=== PATIENT | male | born 1985 | race Caucasian/White ===

== ENCOUNTER 2023-08-04 20:13 | Emergency (ER) | payer OTHER ==
[~2023-08-04] VITALS: Ht 172.7 cm; Wt 91.2 kg
[2023-08-04 20:15] VITALS: BP 126/82; TEMP 98.9; O2SAT 100
[2023-08-04 20:17] VITALS: PULSE 118; RESP 16
== END 2023-08-04 21:32 | disposition left against medical advice (07) ==
LOC: ER 20:13
DX: R05.9 Cough, unspecified (principal); Z53.21 Procedure and treatment not carried out due to patient leaving prior to being seen by health care provider